=== PATIENT | male | born 1970 | race Caucasian/White ===

== ENCOUNTER 2018-07-04 14:01 | Emergency (ER) | payer OTHER ==
[~2018-07-04] VITALS: Ht 177.8 cm; Wt 88.5 kg
[2018-07-04] MEDS ORDERED: SKELAXIN800 MG PO (18:56)
[2018-07-04] MEDS ORDERED: MEDROLPACK PO (18:56)
[2018-07-04] MEDS ORDERED: CELEBREX100 MG PO (18:56)
== END 2018-07-04 19:03 | disposition home or self-care (01) ==
LOC: ER 14:01
DX: M54.42 Lumbago with sciatica, left side (principal); M54.41 Lumbago with sciatica, right side